=== PATIENT | female | born 1935 | race Caucasian/White ===

== ENCOUNTER 2018-05-10 07:11 | Emergency (ER) | payer MEDICARE, OTHER ==
[2018-05-10 07:41] VITALS: RESP 18; TEMP 98
--- NOTE | 2018-05-10 08:11 | ED PDOC ---
HPI: Eye Injury/Pain Time Seen by Provider: 05/10/18 07:19 Chief Complaint (Nursing): Eye Problem Chief Complaint (Provider): Right Eye Pain History Per: Patient History/Exam Limitations: no limitations Onset/Duration Of Symptoms: Days Current Symptoms Are (Timing): Still Present Quality: "Pain" Associated Symptoms: Swelling. denies: Decreased Vision, Itching, Discharge From Eye Additional Complaint(s): 82 year old female presents to the ED for an evaluation of right eye pain that has worsened since this morning. Reports it is swollen and inside her right eye she notices pockets of pus. Denies fever, itchiness or blurriness. PMD: Dr. Zapata ([place]) Past Medical History Reviewed: Historical Data, Nursing Documentation, Vital Signs Vital Signs: Last Vital Signs Temp 98.0 F 05/10/18 07:45 Pulse 78 05/10/18 07:45 Resp 18 05/10/18 07:45 BP 151/64 H 05/10/18 07:45 Pulse Ox 97 05/10/18 07:45 - Medical History PMH: HTN, Hypercholesterolemia Denies: Kidney Stones, Chronic Kidney Disease - Family History Family History: States: Unknown Family Hx - Social History Current smoker - smoking cessation education provided: No Alcohol: None Drugs: Denies - Immunization History Hx Tetanus Toxoid Vaccination: Yes Hx Influenza Vaccination: Yes Hx Pneumococcal Vaccination: Yes - Home Medications Home Medications: Ambulatory Orders Medication Instructions Recorded Ciprofloxacin 0.3% [C[facility]an [facility] - Allergies Allergies/Adverse Reactions: Allergies Allergy/AdvReac Type Severity Reaction Status Date / Time No Known Allergies Allergy Verified 05/10/18 07:42 Review of Systems ROS Statement: Except As Marked, All Systems Reviewed And Found Negative Constitutional: Negative for: Fever Eyes: Positive for: Pain. Negative for: Vision Change, Conjunctivae Inflammation Physical Exam - Reviewed Nursing Documentation Reviewed: Yes Vital Signs Reviewed: Yes - Physical Exam Appears: Positive for: Non-toxic, No Acute Distress Head Exam: Positive for: ATRAUMATIC, NORMAL INSPECTION, NORMOCEPHALIC Skin: Positive for: Normal Color, Warm, Dry Eye Exam: Positive for: EOMI (mild tenderness infraorbital), Other (no induration, swelling, erythema, active secretion and drainage of of right eye). Negative for: Normal appearance (mild tenderness infraorbital, inner surface of eyelid 2 small open lesions about 1-2mm in size) Neurologic/Psych: Positive for: Alert, Oriented (x3) - ECG O2 Sat by Pulse Oximetry: 97 (RA) Pulse Ox Interpretation: Normal Medical Decision Making Medical Decision Making: Time: 718 Initial Impression: stye Initial Plan: --Reevaluation Clinical Impression: Hordeolum internum right lower eyelid Upon provider evaluation patient is medically stable, and requires no further treatment in the ED at this time. Patient will be discharged with ciproflozacin eye drops for stye. Counseling was provided and all questions were answered regarding diagnosis and need for follow up with PMD. There is agreement to discharge plan. Return if symptoms persist or worsen. Scribe Attestation: Documented by Darinel Carter, acting as a scribe for Tea Jin MD Provider Scribe Attestation: All medical record entries made by the Scribe were at my direction and personally dictated by me. I have reviewed the chart and agree that the record accurately reflects my personal performance of the history, physical exam, medical decision making, and the department course for this patient. I have also personally directed, reviewed, and agree with the discharge instructions and disposition. Disposition - Clinical Impression Clinical Impression: Hordeolum internum right lower eyelid - Patient ED Disposition Is Patient to be Admitted: No - Disposition Referrals: Amy Yin MD [Primary Care Provider] - Disposition: Routine/Home Disposition Time: 08:30 Condition: STABLE Additional Instructions: apply warm compresses three times per day. Followup with your doctor in [place] if not improved. Prescriptions: Ciprofloxacin 0.3% [Ciloxan 0.3% Ophth SOLN] 1 drop OD QID #1 bottle Instructions: Stye (Hordeolum) Forms: [employer] ([place]) - POA Present On Arrival: None
[2018-05-10 08:41] VITALS: BP 151/62; PULSE 77
[2018-05-10 14:31] VITALS: O2SAT 97
== END 2018-05-10 08:27 | disposition home or self-care (01) ==
LOC: H.ER 07:11
DX: H00.022 Hordeolum internum right lower eyelid (principal); E78.00 Pure hypercholesterolemia, unspecified; I10 Essential (primary) hypertension